=== PATIENT | female | born 1930 | race Caucasian/White ===

== ENCOUNTER 2017-10-01 19:52 | Emergency (ER) | payer MEDICARE, OTHER ==
[2017-10-01 22:36] LABS: ADD MAN DIFF? NO
[2017-10-01 22:37] LABS: BASOPHILS % 0.5 % (0.0-2.0); EOSINOPHILS # 0.2 10^3/ul (0.0-0.5); EOSINOPHILS % 2.9 % (0.0-7.0); HEMATOCRIT 30.5 % (37.0-47.0); HEMOGLOBIN 10.4 g/dl (12.0-16.0); LYMPHOCYTES # 1.4 10^3/ul (0.8-2.9); LYMPHOCYTES % 22.3 % (15.0-51.0); MEAN CORPUSCULAR HEMOGLOBIN 30.1 pg (29.0-33.0); MEAN CORPUSCULAR HGB CONC 34.1 g/dl (32.0-37.0); MEAN CORPUSCULAR VOLUME 88.2 fl (82.0-101.0); MEAN PLATELET VOLUME 10.8 fl (7.4-10.4); MONOCYTE # 0.7 10^3/ul (0.3-0.9); MONOCYTES % 11.5 % (0.0-11.0); NEUTROPHIL # 3.9 10^3/ul (1.6-7.5); NEUTROPHILS % 62.5 % (39.0-77.0); PLATELET COUNT 206 10^3/UL (140-415); RED BLOOD COUNT 3.46 10^6/ul (4.20-5.40); RED CELL DISTRIBUTION WIDTH 12.8 % (11.5-14.5)
[2017-10-01 22:37] LABS: WHITE BLOOD COUNT 6.3 10^3/ul (4.8-10.8)
[2017-10-01 22:40] LABS: ADD UMIC NO; UR ASCORBIC ACID NEGATIVE (NEGATIVE); UR BILIRUBIN (Dip) NEGATIVE (NEGATIVE); UR BLOOD (Dip) NEGATIVE (NEGATIVE); UR CLARITY CLEAR (CLEAR); UR COLOR STRAW (YELLOW); UR GLUCOSE (Dip) NEGATIVE (NEGATIVE); UR KETONES (Dip) NEGATIVE (NEGATIVE); UR LEUKOCYTE ESTERASE (Dip) NEGATIVE Leu/ul (NEGATIVE); UR NITRITE (Dip) NEGATIVE (NEGATIVE); UR SPECIFIC GRAVITY (Dip) 1.003 (1.003-1.030); UR TOTAL PROTEIN (Dip) NEGATIVE (NEGATIVE); UR UROBILINOGEN (Dip) NEGATIVE (NEGATIVE)
[2017-10-01] MEDS: ONDANSETRON 4 MG INJ IV (22:40)
[2017-10-01] MEDS: SOD CHLORIDE 0.9% 1,000 ML IV (22:40)
[2017-10-01] MEDS: morphine 4 MG/ML VIAL IV (22:41)
[2017-10-01 23:10] LABS: ALANINE AMINOTRANSFERASE 17 IU/L (13-69); ALBUMIN 3.9 g/dl (3.3-4.9); ALBUMIN/GLOBULIN RATIO 1.34; ALKALINE PHOSPHATASE 66 IU/L (42-121); ANION GAP 10 (8-16); ASPARTATE AMINO TRANSFERASE 18 IU/L (15-46); BILIRUBIN,INDIRECT 0.4 mg/dl (0-1.1); BILIRUBIN,TOTAL 0.4 mg/dl (0.2-1.3); BLOOD UREA NITROGEN 17 mg/dl (7-20); CALCIUM 9.5 mg/dl (8.4-10.2); CARBON DIOXIDE 29 mmol/L (21-31); CHLORIDE 101 mmol/L (97-110); CREATININE 0.66 mg/dl (0.44-1.00); GLUCOSE 165 mg/dl (70-220); LIPASE 57 U/L (23-300); SODIUM 135 mmol/L (135-144); TOTAL PROTEIN 6.8 g/dl (6.1-8.1)
[2017-10-01 23:21] LABS: TROPONIN-I < 0.010 ng/ml (0.000-0.120)
[2017-10-02] MEDS: KETOROLAC 15 MG INJ IV (00:40)
== END 2017-10-02 02:40 | disposition home or self-care (01) ==
LOC: E/R 10-02 02:40
DX: R10.31 Right lower quadrant pain (principal); R11.0 Nausea; I10 Essential (primary) hypertension; E11.9 Type 2 diabetes mellitus without complications
CPT/HCPCS: 36415; 74176; 80053; 81003; 83690; 84484; 85025; 93005; 96361; 96374; 96375; 99285-25

== ENCOUNTER 2018-03-09 06:12 | Inpatient (IN) | payer MEDICARE, OTHER ==
[2018-03-09] MEDS: ASPIRIN 325 MG TAB PO (07:01)
[2018-03-09] MEDS: DILTIAZEM 25 MG INJ IV ×2 (07:09→07:44)
[2018-03-09 07:39] LABS: ADD MAN DIFF? NO
[2018-03-09 07:41] LABS: WHITE BLOOD COUNT 10.5 10^3/ul (4.8-10.8)
[2018-03-09 07:41] LABS: BASOPHILS % 0.1 % (0.0-2.0); HEMATOCRIT 35.3 % (37.0-47.0); HEMOGLOBIN 12.2 g/dl (12.0-16.0); LYMPHOCYTES # 1.1 10^3/ul (0.8-2.9); LYMPHOCYTES % 10.6 % (15.0-51.0); MEAN CORPUSCULAR HEMOGLOBIN 29.4 pg (29.0-33.0); MEAN CORPUSCULAR HGB CONC 34.6 g/dl (32.0-37.0); MEAN CORPUSCULAR VOLUME 85.1 fl (82.0-101.0); MEAN PLATELET VOLUME 11.5 fl (7.4-10.4); MONOCYTE # 0.5 10^3/ul (0.3-0.9); MONOCYTES % 4.9 % (0.0-11.0); NEUTROPHIL # 8.8 10^3/ul (1.6-7.5); PLATELET COUNT 225 10^3/UL (140-415); RED BLOOD COUNT 4.15 10^6/ul (4.20-5.40); RED CELL DISTRIBUTION WIDTH 12.4 % (11.5-14.5)
[2018-03-09] MEDS: DILTIAZEM-D5W 125MG/125ML DRIP 125 ML IV ×2 (07:57→20:00)
[2018-03-09 07:59] LABS: INR 0.97
[2018-03-09 08:00] LABS: PARTIAL THROMBOPLASTIN TIME 28.1 Sec (23.0-35.0)
[2018-03-09 08:10] LABS: ALANINE AMINOTRANSFERASE 19 IU/L (13-69); ALBUMIN 4.2 g/dl (3.3-4.9); ALKALINE PHOSPHATASE 91 IU/L (42-121); ANION GAP 13 (5-13); ASPARTATE AMINO TRANSFERASE 23 IU/L (15-46); BILIRUBIN,INDIRECT 0.1 mg/dl (0-1.1); BILIRUBIN,TOTAL 0.1 mg/dl (0.2-1.3); BLOOD UREA NITROGEN 27 mg/dl (7-20); CALCIUM 9.9 mg/dl (8.4-10.2); CARBON DIOXIDE 24 mmol/L (21-31); CHLORIDE 101 mmol/L (97-110); CREATININE 0.55 mg/dl (0.44-1.00); GLUCOSE 244 mg/dl (70-220); POTASSIUM 3.9 mmol/L (3.5-5.1); SODIUM 138 mmol/L (135-144)
[2018-03-09 08:21] LABS: TROPONIN-I 0.025 ng/ml (0.000-0.120)
[2018-03-09 08:32] LABS: MAGNESIUM 1.5 mg/dl (1.7-2.5)
[2018-03-09] MEDS: MAGNESIUM SULFATE 1 GM/D5W 100 ML IVPB (09:34)
[2018-03-09 09:36] LABS: MODE NASAL CANNULA; MetHgb Venous 0.7 %; Sample Type Blood venous; Site VENOUS LINE; Venous COHb 0.3 %; Venous Fraction OxyHgb 30.8 %; Venous Oxygen Sat 31.1 mmHG (55.0-75.0); Venous Total Hemglobin 12.5 g/dl
[2018-03-09] MEDS ORDERED: ONDANSETRON 4 MG INJ IV (10:00)
[2018-03-09] MEDS ORDERED: ACETAMINOPHEN 325 MG TAB PO (10:00)
[2018-03-09] MEDS ORDERED: HYDROCODONE/APAP (5/325) TAB PO (11:30)
[2018-03-09] MEDS ORDERED: NACL 0.9% 3 ML SYG IV (11:30)
[2018-03-09] MEDS ORDERED: GLUCOSE GEL 15 GRAM TUBE PO ×2 (12:00)
[2018-03-09] MEDS ORDERED: GLUCOSE GEL 15 GRAM TUBE BUCCAL (12:00)
[2018-03-09] MEDS ORDERED: GLUCAGON 1 MG INJ IM (12:00)
[2018-03-09] MEDS ORDERED: DEXTROSE 50% 50 ML SYRINGE IV ×2 (12:00)
[2018-03-09 12:03] LABS: B-TYPE NATRIURETIC PEPTIDE 615 PG/ML (0-450)
[2018-03-09] MEDS: DOCUSATE SODIUM 100 MG CAP PO ×2 (12:07→21:02)
[2018-03-09] MEDS: METOPROLOL 50 MG TAB PO (12:08)
[2018-03-09] MEDS: INSULIN ASPART [NOVOLOG] 3 ML PEN SC ×5 (12:15→19:58)
[2018-03-09 12:25] LABS: CARCINOEMBRYONIC ANTIGEN 2.1 ng/ml (0.0-5.0)
[2018-03-09 13:34] LABS: CREATINE KINASE 241 IU/L (23-200)
[2018-03-09 13:47] LABS: CK INDEX 4.1; CK-MB 9.99 ng/ml (0.0-2.4)
[2018-03-09 13:53] LABS: TROPONIN-I 0.436 ng/ml (0.000-0.120)
[2018-03-09] MEDS ORDERED: ENOXAPARIN 40 MG/0.4 ML SYG SC (14:00)
[2018-03-09] MEDS ORDERED: METOPROLOL 5 MG INJ IV (14:30)
[2018-03-09] MEDS: DIGOXIN 500 MCG INJ IV ×2 (14:30→20:57)
[2018-03-09] MEDS: IODIXANOL LOCM 100 ML BTL ×2 (14:52→15:23)
[2018-03-09] MEDS: SOD CHLORIDE 0.9% 100 ML (14:52)
[2018-03-09 19:49] LABS: CREATINE KINASE 240 IU/L (23-200)
[2018-03-09 20:02] LABS: CK INDEX 3.8; CK-MB 9.12 ng/ml (0.0-2.4)
[2018-03-09 20:11] LABS: TROPONIN-I 0.789 ng/ml (0.000-0.120)
[2018-03-09] MEDS: ATORVASTATIN 10 MG TAB PO (20:57)
[2018-03-09] MEDS: ENOXAPARIN 60 MG/0.6 ML SYG SC (21:00)
[2018-03-09] MEDS ORDERED: NON-FORMULARY/PATIENT OWN MED (Simvastatin 10 MG) PO (21:00)
[2018-03-09] MEDS: METOPROLOL 25 MG TAB PO (21:15)
[2018-03-10] MEDS: ACCU-CHEK XX (02:00)
[2018-03-10 06:08] LABS: ADD MAN DIFF? NO
[2018-03-10 06:18] LABS: WHITE BLOOD COUNT 7.9 10^3/ul (4.8-10.8)
[2018-03-10 06:18] LABS: BASOPHILS % 0.5 % (0.0-2.0); EOSINOPHILS % 0.5 % (0.0-7.0); HEMATOCRIT 34.8 % (37.0-47.0); HEMOGLOBIN 11.9 g/dl (12.0-16.0); LYMPHOCYTES # 2.2 10^3/ul (0.8-2.9); LYMPHOCYTES % 28.3 % (15.0-51.0); MEAN CORPUSCULAR HEMOGLOBIN 29.2 pg (29.0-33.0); MEAN CORPUSCULAR HGB CONC 34.2 g/dl (32.0-37.0); MEAN CORPUSCULAR VOLUME 85.3 fl (82.0-101.0); MEAN PLATELET VOLUME 10.5 fl (7.4-10.4); MONOCYTE # 0.7 10^3/ul (0.3-0.9); MONOCYTES % 8.4 % (0.0-11.0); NEUTROPHIL # 4.9 10^3/ul (1.6-7.5); PLATELET COUNT 262 10^3/UL (140-415); RED BLOOD COUNT 4.08 10^6/ul (4.20-5.40); RED CELL DISTRIBUTION WIDTH 12.6 % (11.5-14.5)
[2018-03-10 06:43] LABS: ALANINE AMINOTRANSFERASE 27 IU/L (13-69); ALBUMIN 3.7 g/dl (3.3-4.9); ALBUMIN/GLOBULIN RATIO 1.32; ALKALINE PHOSPHATASE 75 IU/L (42-121); ANION GAP 11 (5-13); ASPARTATE AMINO TRANSFERASE 29 IU/L (15-46); BILIRUBIN,INDIRECT 0.1 mg/dl (0-1.1); BILIRUBIN,TOTAL 0.1 mg/dl (0.2-1.3); BLOOD UREA NITROGEN 19 mg/dl (7-20); CALCIUM 9.7 mg/dl (8.4-10.2); CARBON DIOXIDE 29 mmol/L (21-31); CHLORIDE 102 mmol/L (97-110); CHOL/HDL RATIO 4.6 RATIO; CHOLESTEROL 172 mg/dl (100-200); GLUCOSE 85 mg/dl (70-220); HDL CHOLESTEROL 37 mg/dl (33-92); LDL CHOLESTEROL,CALCULATED 106 mg/dl; MAGNESIUM 1.9 mg/dl (1.7-2.5); PHOSPHORUS 3.3 mg/dl (2.5-4.9); SODIUM 142 mmol/L (135-144); TOTAL PROTEIN 6.5 g/dl (6.1-8.1); TRIGLYCERIDES 147 mg/dl (0-149)
[2018-03-10] MEDS: PANTOPRAZOLE (EC) 40 MG TAB PO (06:46)
[2018-03-10 07:13] LABS: HEMOGLOBIN A1C 6.4 % (0-5.9)
[2018-03-10] MEDS: INSULIN ASPART [NOVOLOG] 3 ML PEN SC ×7 (07:55→20:41)
[2018-03-10] MEDS: INSULIN GLARGINE [LANTus] (100 UNITS/ML) SYG SC ×2 (08:00→11:51)
[2018-03-10] MEDS: DILTIAZEM-D5W 125MG/125ML DRIP 125 ML IV (08:17)
[2018-03-10] MEDS: METOPROLOL 25 MG TAB PO (08:18)
[2018-03-10] MEDS: LOSARTAN 50 MG TAB PO (08:18)
[2018-03-10] MEDS: AMLODIPINE 5 MG TAB PO (08:18)
[2018-03-10] MEDS ORDERED: ASPIRIN 81 MG TAB PO (09:00)
[2018-03-10] MEDS ORDERED: NON-FORMULARY/PATIENT OWN MED (Irbesartan* 150 MG) PO (09:00)
[2018-03-10] MEDS ORDERED: METOPROLOL 5 MG INJ IV (10:00)
[2018-03-10 10:06] LABS: FREE T4 (FREE THYROXINE) 0.86 ng/dl (0.85-1.93)
[2018-03-10] MEDS: DIGOXIN 500 MCG INJ IV ×2 (11:48→17:12)
[2018-03-10] MEDS: DOCUSATE SODIUM 100 MG CAP PO ×2 (11:48→23:30)
[2018-03-10] MEDS: ATORVASTATIN 40 MG TAB PO (20:33)
[2018-03-10] MEDS: ENOXAPARIN 60 MG/0.6 ML SYG SC (20:40)
[2018-03-10] MEDS ORDERED: DILTIAZEM (CD) 120 MG CAP PO (22:28)
[2018-03-10] MEDS: DILTIAZEM (CD) 120 MG CAP PO (22:30)
[2018-03-11] MEDS: ACCU-CHEK XX (02:00)
[2018-03-11 06:09] LABS: ADD MAN DIFF? NO
[2018-03-11 06:24] LABS: BASOPHIL # 0.1 10^3/ul (0.0-0.1); BASOPHILS % 0.8 % (0.0-2.0); EOSINOPHILS # 0.1 10^3/ul (0.0-0.5); EOSINOPHILS % 0.9 % (0.0-7.0); HEMATOCRIT 39.8 % (37.0-47.0); HEMOGLOBIN 13.5 g/dl (12.0-16.0); LYMPHOCYTES # 2.3 10^3/ul (0.8-2.9); LYMPHOCYTES % 24.9 % (15.0-51.0); MEAN CORPUSCULAR HEMOGLOBIN 29.1 pg (29.0-33.0); MEAN CORPUSCULAR HGB CONC 33.9 g/dl (32.0-37.0); MEAN CORPUSCULAR VOLUME 85.8 fl (82.0-101.0); MEAN PLATELET VOLUME 10.7 fl (7.4-10.4); MONOCYTE # 0.7 10^3/ul (0.3-0.9); MONOCYTES % 7.3 % (0.0-11.0); NEUTROPHIL # 6.1 10^3/ul (1.6-7.5); NEUTROPHILS % 65.6 % (39.0-77.0); PLATELET COUNT 281 10^3/UL (140-415); RED BLOOD COUNT 4.64 10^6/ul (4.20-5.40); RED CELL DISTRIBUTION WIDTH 12.3 % (11.5-14.5)
[2018-03-11 06:24] LABS: WHITE BLOOD COUNT 9.2 10^3/ul (4.8-10.8)
[2018-03-11] MEDS: PANTOPRAZOLE (EC) 40 MG TAB PO (06:38)
[2018-03-11 06:42] LABS: ANION GAP 12 (5-13); BLOOD UREA NITROGEN 26 mg/dl (7-20); CARBON DIOXIDE 27 mmol/L (21-31); CHLORIDE 102 mmol/L (97-110); CREATININE 0.67 mg/dl (0.44-1.00); GLUCOSE 131 mg/dl (70-220); MAGNESIUM 1.8 mg/dl (1.7-2.5); POTASSIUM 4.7 mmol/L (3.5-5.1); SODIUM 141 mmol/L (135-144)
[2018-03-11 06:52] LABS: TROPONIN-I 0.286 ng/ml (0.000-0.120)
[2018-03-11] MEDS: INSULIN ASPART [NOVOLOG] 3 ML PEN SC ×7 (07:49→21:00)
[2018-03-11] MEDS: LOSARTAN 50 MG TAB PO (08:47)
[2018-03-11] MEDS: DILTIAZEM (CD) 120 MG CAP PO (08:48)
[2018-03-11] MEDS: ENOXAPARIN 60 MG/0.6 ML SYG SC ×2 (08:54→22:12)
[2018-03-11] MEDS: INSULIN GLARGINE [LANTus] (100 UNITS/ML) SYG SC (08:54)
[2018-03-11] MEDS: DOCUSATE SODIUM 100 MG CAP PO (11:44)
[2018-03-11] MEDS: ATORVASTATIN 40 MG TAB PO (21:39)
[2018-03-12] MEDS: DOCUSATE SODIUM 100 MG CAP PO ×4 (00:38→23:30)
[2018-03-12] MEDS: ACCU-CHEK XX (02:00)
[2018-03-12] MEDS: PANTOPRAZOLE (EC) 40 MG TAB PO (05:44)
[2018-03-12] MEDS: INSULIN ASPART [NOVOLOG] 3 ML PEN SC ×8 (07:55→22:07)
[2018-03-12] MEDS: LOSARTAN 50 MG TAB PO (08:32)
[2018-03-12] MEDS: DILTIAZEM (CD) 120 MG CAP PO (08:32)
[2018-03-12] MEDS: ENOXAPARIN 60 MG/0.6 ML SYG SC ×2 (08:38→20:45)
[2018-03-12] MEDS: INSULIN GLARGINE [LANTus] (100 UNITS/ML) SYG SC (08:38)
[2018-03-12] MEDS: BISACODYL (EC) 5 MG TAB PO (12:45)
[2018-03-12 14:48] LABS: OCCULT BLOOD STOOL NEGATIVE (NEGATIVE)
[2018-03-12] MEDS: MAGNESIUM CITRATE 300 ML BTL PO (17:23)
[2018-03-12] MEDS: POLYETHYLENE GLYCOL 3350 119 GM POWDER PO (18:42)
[2018-03-12] MEDS: ATORVASTATIN 40 MG TAB PO (20:32)
[2018-03-12] MEDS: ONDANSETRON 4 MG INJ IV (20:32)
[2018-03-12] MEDS: METOPROLOL (XL) 25 MG TAB PO (20:49)
[2018-03-13] MEDS: ACCU-CHEK XX (02:02)
[2018-03-13] MEDS: PANTOPRAZOLE (EC) 40 MG TAB PO (05:41)
[2018-03-13] MEDS: POLYETHYLENE GLYCOL 3350 119 GM POWDER PO (05:42)
[2018-03-13] MEDS: INSULIN ASPART [NOVOLOG] 3 ML PEN SC ×7 (07:55→21:00)
[2018-03-13] MEDS: BISACODYL (EC) 5 MG TAB PO (08:38)
[2018-03-13] MEDS: METOPROLOL (XL) 25 MG TAB PO ×2 (08:39→22:27)
[2018-03-13] MEDS: LOSARTAN 50 MG TAB PO (08:39)
[2018-03-13] MEDS: INSULIN GLARGINE [LANTus] (100 UNITS/ML) SYG SC (08:56)
[2018-03-13] MEDS: DOCUSATE SODIUM 100 MG CAP PO ×2 (11:30→22:25)
[2018-03-13] MEDS: PROPOFOL 20 ML (13:30)
[2018-03-13] MEDS: ATORVASTATIN 40 MG TAB PO (22:25)
[2018-03-13] MEDS: ENOXAPARIN 60 MG/0.6 ML SYG SC (22:31)
[2018-03-14] MEDS: ACETAMINOPHEN 325 MG TAB PO (00:28)
[2018-03-14] MEDS: ACCU-CHEK XX (02:00)
[2018-03-14 06:01] LABS: ADD MAN DIFF? NO
[2018-03-14 06:05] LABS: WHITE BLOOD COUNT 9.7 10^3/ul (4.8-10.8)
[2018-03-14 06:05] LABS: BASOPHIL # 0.1 10^3/ul (0.0-0.1); BASOPHILS % 0.6 % (0.0-2.0); EOSINOPHILS # 0.2 10^3/ul (0.0-0.5); EOSINOPHILS % 1.5 % (0.0-7.0); HEMATOCRIT 33.1 % (37.0-47.0); HEMOGLOBIN 11.4 g/dl (12.0-16.0); LYMPHOCYTES % 20.6 % (15.0-51.0); MEAN CORPUSCULAR HEMOGLOBIN 29.2 pg (29.0-33.0); MEAN CORPUSCULAR HGB CONC 34.4 g/dl (32.0-37.0); MEAN CORPUSCULAR VOLUME 84.9 fl (82.0-101.0); MEAN PLATELET VOLUME 10.4 fl (7.4-10.4); MONOCYTE # 1.1 10^3/ul (0.3-0.9); MONOCYTES % 11.6 % (0.0-11.0); NEUTROPHIL # 6.3 10^3/ul (1.6-7.5); NEUTROPHILS % 64.9 % (39.0-77.0); PLATELET COUNT 241 10^3/UL (140-415); RED CELL DISTRIBUTION WIDTH 12.5 % (11.5-14.5)
[2018-03-14] MEDS: PANTOPRAZOLE (EC) 40 MG TAB PO (06:07)
[2018-03-14 06:29] LABS: ANION GAP 9 (5-13); BLOOD UREA NITROGEN 19 mg/dl (7-20); CALCIUM 9.5 mg/dl (8.4-10.2); CARBON DIOXIDE 28 mmol/L (21-31); CHLORIDE 101 mmol/L (97-110); CREATININE 0.94 mg/dl (0.44-1.00); GLUCOSE 133 mg/dl (70-220); MAGNESIUM 1.9 mg/dl (1.7-2.5); POTASSIUM 4.5 mmol/L (3.5-5.1); SODIUM 138 mmol/L (135-144)
[2018-03-14] MEDS: INSULIN ASPART [NOVOLOG] 3 ML PEN SC ×4 (07:55→12:18)
[2018-03-14] MEDS: LOSARTAN 50 MG TAB PO (08:34)
[2018-03-14] MEDS: METOPROLOL (XL) 25 MG TAB PO (08:34)
[2018-03-14] MEDS: ENOXAPARIN 60 MG/0.6 ML SYG SC (08:42)
[2018-03-14] MEDS: INSULIN GLARGINE [LANTus] (100 UNITS/ML) SYG SC (08:43)
[2018-03-14] MEDS: DOCUSATE SODIUM 100 MG CAP PO (12:22)
== END 2018-03-14 14:55 | disposition home or self-care (01) | DRG 280 ==
LOC: TEL 03-11 00:43 → E/R 06:12 → TEL 09:40
PROVIDERS: Family Medicine
PROC: 0DJ08ZZ Inspection of Upper Intestinal Tract, Via Natural or Artificial Opening Endoscopic (ICD-10-PCS; principal; 2018-03-13 12:58)
PROC: 0DJD8ZZ Inspection of Lower Intestinal Tract, Via Natural or Artificial Opening Endoscopic (ICD-10-PCS; 2018-03-13 12:58)
DX: I48.91 Unspecified atrial fibrillation (principal); I21.A1 Myocardial infarction type 2; K57.31 Diverticulosis of large intestine without perforation or abscess with bleeding; E78.5 Hyperlipidemia, unspecified; E11.9 Type 2 diabetes mellitus without complications; I10 Essential (primary) hypertension; K29.70 Gastritis, unspecified, without bleeding; K64.8 Other hemorrhoids; Z79.4 Long term (current) use of insulin
CPT/HCPCS: 36415; 71045; 71275; 74177; 80048; 80053; 80061; 82270; 82378; 82550; 82553; 82803; 82962; 83036; 83735; 83880; 84100; 84439; 84443; 84484; 85025; 85610; 85730; 93005; 93306; 96374; 96375; 96376; 99291-25

== ENCOUNTER 2018-05-26 19:50 | Emergency (ER) | payer MEDICARE, OTHER ==
[2018-05-26] MEDS: IBUPROFEN 600 MG TAB PO (20:56)
== END 2018-05-26 22:13 | disposition home or self-care (01) ==
LOC: E/R 19:50
DX: S33.5XXA Sprain of ligaments of lumbar spine, initial encounter (principal); S00.03XA Contusion of scalp, initial encounter; I10 Essential (primary) hypertension; I25.10 Atherosclerotic heart disease of native coronary artery without angina pectoris; E11.9 Type 2 diabetes mellitus without complications; W01.198A Fall on same level from slipping, tripping and stumbling with subsequent striking against other object, initial encounter; Y92.9 Unspecified place or not applicable; Z79.4 Long term (current) use of insulin; Z79.82 Long term (current) use of aspirin
CPT/HCPCS: 70450; 71045; 72100; 72170; 99284-25

== ENCOUNTER 2018-08-28 13:34 | Emergency (ER) | payer MEDICARE, OTHER ==
[2018-08-28 14:15] LABS: ADD MAN DIFF? NO
[2018-08-28 14:18] LABS: WHITE BLOOD COUNT 9.7 10^3/ul (4.8-10.8)
[2018-08-28 14:18] LABS: BASOPHILS % 0.4 % (0.0-2.0); EOSINOPHILS % 0.2 % (0.0-7.0); HEMATOCRIT 28.3 % (37.0-47.0); HEMOGLOBIN 9.3 g/dl (12.0-16.0); LYMPHOCYTES # 1.1 10^3/ul (0.8-2.9); LYMPHOCYTES % 11.4 % (15.0-51.0); MEAN CORPUSCULAR HEMOGLOBIN 26.6 pg (29.0-33.0); MEAN CORPUSCULAR HGB CONC 32.9 g/dl (32.0-37.0); MEAN CORPUSCULAR VOLUME 81.1 fl (82.0-101.0); MEAN PLATELET VOLUME 9.9 fl (7.4-10.4); MONOCYTE # 0.9 10^3/ul (0.3-0.9); MONOCYTES % 9.6 % (0.0-11.0); NEUTROPHIL # 7.6 10^3/ul (1.6-7.5); NEUTROPHILS % 77.8 % (39.0-77.0); PLATELET COUNT 261 10^3/UL (140-415); RED BLOOD COUNT 3.49 10^6/ul (4.20-5.40)
[2018-08-28 14:38] LABS: ALANINE AMINOTRANSFERASE 14 IU/L (13-69); ALBUMIN 3.8 g/dl (3.3-4.9); ALBUMIN/GLOBULIN RATIO 1.15; ALKALINE PHOSPHATASE 84 IU/L (42-121); ANION GAP 10 (5-13); ASPARTATE AMINO TRANSFERASE 17 IU/L (15-46); BILIRUBIN,INDIRECT 0.7 mg/dl (0-1.1); BILIRUBIN,TOTAL 0.7 mg/dl (0.2-1.3); BLOOD UREA NITROGEN 15 mg/dl (7-20); CALCIUM 9.8 mg/dl (8.4-10.2); CARBON DIOXIDE 26 mmol/L (21-31); CHLORIDE 101 mmol/L (97-110); CREATININE 0.56 mg/dl (0.44-1.00); GLUCOSE 103 mg/dl (70-220); LIPASE 45 U/L (23-300); POTASSIUM 3.9 mmol/L (3.5-5.1); SODIUM 137 mmol/L (135-144); TOTAL PROTEIN 7.1 g/dl (6.1-8.1)
[2018-08-28 15:39] LABS: ADD UMIC YES; UR ASCORBIC ACID NEGATIVE (NEGATIVE); UR BILIRUBIN (Dip) NEGATIVE (NEGATIVE); UR BLOOD (Dip) 1+ mg/dL (NEGATIVE); UR CLARITY CLEAR (CLEAR); UR COLOR YELLOW (YELLOW); UR GLUCOSE (Dip) NEGATIVE (NEGATIVE); UR KETONES (Dip) NEGATIVE (NEGATIVE); UR LEUKOCYTE ESTERASE (Dip) TRACE Leu/ul (NEGATIVE); UR NITRITE (Dip) NEGATIVE (NEGATIVE); UR RBC 3 /HPF (0-5); UR SPECIFIC GRAVITY (Dip) 1.008 (1.003-1.030); UR TOTAL PROTEIN (Dip) NEGATIVE (NEGATIVE); UR UROBILINOGEN (Dip) NEGATIVE (NEGATIVE); UR WBC 3 /HPF (0-5)
[2018-08-28] MEDS ORDERED: ACETAMINOPHEN 325 MG TAB PO (16:30)
== END 2018-08-28 18:25 | disposition home or self-care (01) ==
LOC: E/R 13:34
DX: K59.00 Constipation, unspecified (principal); D64.9 Anemia, unspecified; I10 Essential (primary) hypertension; R52 Pain, unspecified; E11.9 Type 2 diabetes mellitus without complications; I25.10 Atherosclerotic heart disease of native coronary artery without angina pectoris; Z79.4 Long term (current) use of insulin
CPT/HCPCS: 71045; 80053; 81001; 83690; 85025; 99284-25